=== PATIENT | female | born 1980 | race Caucasian/White ===

== ENCOUNTER 2025-04-04 13:57 | Outpatient (REF) | payer OTHER, SELFPAY ==
--- NOTE | 2025-04-04 14:05 | EMG_ITS ---
Chief complaint: Difficulty with making a fist noted 4 months ago. Without any pain or numbness. Fell down hurting right upper arm 2 months ago. 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 No atrophy. Right biceps appear to be more prominent compared to left side. Reason for referral: Evaluate for ulnar neuropathy, radiculopathy or carpal tunnel. Referred by: Yulisa VOSS Procedure done: Right upper extremity NCS/EMG Precautions and/or limitations: None The limb temperature was monitored continuously and remained between 32-36 degrees C during the performance of the NCS. Ulnar motor NCS was performed with moderate elbow flexion between 70-90 degrees, with across-elbow distance of 10 cm. Nerve Conduction Studies Anti Sensory Summary Table ?Stim Site NR Onset (ms) Norm Onset (ms) Peak (ms) Norm Peak (ms) O-P Amp (?V) Norm O-P Amp Site1 Site2 Delta-0 (ms) Dist (cm) Naif (m/s) Norm Naif (m/s) Right Lat Ante Brach Cutan Anti Sensory (Lat Forearm) Lat Biceps ? 0.8 1.0 11.1 Lat Biceps Lat Forearm 0.8 0.0 Right Med Ante Brach Cutan Anti Sensory (Med Forearm) Elbow ? 1.5 2.4 27.7 Elbow Med Forearm 1.5 0.0 Right Median Anti Sensory (2nd Digit) Wrist ? 2.3 2.9 <3.6 47.8 >10 Wrist 2nd Digit 2.3 14.0 61 Right Radial Anti Sensory (Thumb) Forearm ? 1.4 1.9 <3.1 15.2 Forearm Thumb 1.4 0.0 Right Ulnar Anti Sensory (5th Digit) Wrist ? 2.2 2.8 <3.7 46.7 >15.0 Wrist 5th Digit 2.2 14.0 64 Motor Summary Table ?Stim Site NR Onset (ms) Norm Onset (ms) O-P Amp (mV) Norm O-P Amp iAmp (mV) Amp (1st) (%) Site1 Site2 Delta-0 (ms) Dist (cm) Naif (m/s) Norm Naif (m/s) Right Median Motor (Abd Poll Brev) Wrist ? 2.8 <3.9 9.2 >4.5 11.0 100.0 Elbow Wrist 3.7 19.0 51 >45 Elbow ? 6.5 9.3 10.9 101.1 Right Ulnar Motor (Abd Dig Minimi) Wrist ? 2.7 <3.0 10.9 >5 12.3 100.0 B Elbow Wrist 2.9 17.0 59 >45 B Elbow ? 5.6 10.8 12.3 99.1 A Elbow B Elbow 1.3 10.0 77 >45 A Elbow ? 6.9 10.9 12.5 100.0 EMG ?Side Muscle Nerve Root Ins Act Fibs Psw Amp Dur Poly Recrt Int Pat Comment Right 1stDorInt Ulnar C8-T1 Nml Nml Nml Nml Nml 0 Nml Complete Right FlexCarRad Median C6-7 Nml Nml Nml Nml Nml 0 Nml Complete Right FlexCarpiUln Ulnar C8,T1 Nml Nml Nml Nml Nml 0 Nml Complete Right Biceps Musculocut C5-6 Nml Nml Nml Nml Nml 0 Nml Complete Right Triceps Radial C6-7-8 Nml Nml Nml Nml Nml 0 Nml Complete Right Deltoid Axillary C5-6 Nml Nml Nml Nml Nml 0 Nml Complete Right FlexDigProf Ulnar C8,T1 Incr 1+ 1+ Nml Nml 0 Nml Complete Paraspinal EMG ?Side Muscle Nerve Root Ins Act Fibs Psw Comment Right Cervical Upper Rami Nml Nml Nml Right Cervical Mid Rami Nml Nml Nml Right Cervical Lower Rami Nml Nml Nml FINDINGS: All motor and sensory nerves tested showed normal latencies, amplitudes and conduction velocities. Concentric needle EMG was performed in selected muscles of the right upper extremity and cervical paraspinals. Study revealed signs of electric abnormalities as shown in the table above. Right FDI showed increased insertional activity, PSWs and fibrillations. IMPRESSION: 1. This is an abnormal study. 2. There are electrodiagnostic findings suggestive for a beginning right ulnar neuropathy at the elbow. 3. There is no electrodiagnostic evidence for median neuropathy, brachial plexopathy, or cervical radiculopathy. CLINICAL COMMENT: 1. Findings above suggest acute ulnar neuropathy at the elbow, consistent with physical exam. Consider repeat NCS/EMG in 2-3 months.. 2. Please evaluate for right biceps tear, possibly unrelated to ulnar neuropathy, patient reported fall 2 months ago. Thank you for your kind referral. Lesly Taylor MD, ARMANDO Board Certified, [place] Board [employer] and Rehabilitation (ABPMR) Board Certified, [place] Board of Electrodiagnostic Medicine (ABEM) [place] [id number] [facility]
--- OUTSIDE RECORDS SUMMARY | 2025-04-04 14:47 | XMS_ITS | Encounter Summary ---
Author Organization [facility] Address [address] [place] [address] Care Team Providers Care Dampproofer Name Role Phone Genoveva Gibbons MD Primary Care Prov ider Reason for Referral * Consultation (Routine) - Pending Review Specialty Diagnoses / Procedures Referred By Gio viramontes Referred To Contact Dermatology Diagnoses Hair loss Genoveva Gibbons MD [address] [place] [address] Phone: tel: fax: [address] [address] Phone: tel: fax: Referral ID Status Reason Start Date Expiration Date Visits Requested Visits Authorized [id number] Pending Review Specialty Services Required 03/15/2025 03/15/2026 1 1 Reason for Visit * Reason Onset Date Comments Call back 03/13/2025 Encounter Details Date Type Department Care Team ([facility] st Contact Info) Description 03/13/2025 Telephone Orthopedic Surgery - [place] [address] [facility] [address] [place] [address] Antoni Welch PA [address] [address] Call back Social History Tobacco Use Types Packs/Day Years Used Date Smoking Tobacco: Never Smokeless Tobacco: Never Alcohol Use Standard Drinks/Week Comments Yes 0 (1 standard drink = 0.6 oz pur e alcohol) Housing Instability Answer Date Recorde d Are you worried that in the next 2 months you may not have stable housing? No 08/01/2024 Food Access & Nutrition Answer Date Rec orded Do you have access to a vari ety of food including fruits and vegetables? Yes 08/01/2024 Access to Healthcare Answer Date Record ed Within the last 3 months, ho w many times did you visit the emergency department for your medical care? 0 08/01/2024 Health Literacy Answer Date Recorded How often do you need to hav e someone help you when you read instructions, pamphlets, or other written material from your doctor or pharmacy? Never 08/01/2024 Caregiver: How often do you need to have someone help you when you read instructions, pamphlets, or other written material from your doctor or pharmacy? Not on file 08/01/2024 Financial Risk Answer Date Recorded How hard is it for you to pa y for the very basics like food, housing, medical care, and air conditioning / heating? Very hard 08/01/2024 Transportation Answer Date Recorded Has the lack of transportati on kept you from meetings, work, or from getting things needed for daily living? No Has the lack of transportati on kept you from medical appointments or from getting medications? No 08/01/2024 Social Isolation Answer Date Recorded How often do you feel lonely or isolated from those around you? Sometimes 08/01/2024 Food Risk Answer Date Recorded Within the past 12 months we worried whether our food would run out before we got money to buy more. Never true 08/01/2024 Within the past 12 months th e food we bought just didn't last and we didn't have money to get more. Never true 08/01/2024 Dependent Care Answer Date Recorded Do you need help finding or paying for care for your loved ones. For example, child care counselor or elderly care for an older adult? No 08/01/2024 Education Answer Date Recorded Do you think completing more education or training, like finishing a GED, going to college, or learning a trade, would be helpful for you? Yes 08/01/2024 Employment and Income Answer Date Recor ded During the last four weeks, have you been actively looking for work? Patient declined 08/01/2024 Living Situation Answer Date Recorded What is your living situation? 1 10/02/2023 Comments Unknown Sex and Gender Information Value Date Recorded Sex Assigned at Not on file Legal Sex Female 8:59 PM EST Gender Identity Not on file Sexual Orientation Not on file documented as of this encounter Progress Notes * Destiny Caceres MA - 03/20/2025 1:17 PM EDT L/M for patient to call office back to let her know Dr. Aguillon signed a dermatology referral. * Genoveva Gibbons MD - 03/15/2025 3:10 PM EDT Yes I think the neck step will be dermatology referral signed * Kavita Hernandez - 03/13/2025 2:36 PM EDT Patient states she received a call back from our office, not sure who called her , Nyasia sent a message to you, which was a My Chart message to Yulisa Lama from patient. By chance did you call her? Please jenaro her back @ [phone] . Thanks. documented in this encounter Plan of Treatment Upcoming Encounters Date Type Department Care Team (Late st Contact Info) Description 04/23/2025 1:15 PM EDT Office Visit Orthopedic Surgery - [place] [address] [facility] [address] [place] [id number] Sandra Logan MD 175 [facility] [address] [place] [id number] 08/09/2025 8:30 AM EST Office Visit Adult Medicine - Mobile [address] [place] [address] Genoveva Gibbons MD [address] [place] [address] Scheduled Referrals Name Type Priority Associated Diagnoses Order Schedule Ambulatory referral to Dermatology Outpatient Referral Routine Hair loss 1 Occurrences starting 03/15/2025 until 03/15/2026 documented as of this encounter Visit Diagnoses Diagnosis Hair loss- Primary Unspecified alopecia documented in this encounter Additional Health Concerns Assessment Noted Time PHQ-9 Depression Total Score: 1 01/26/20 25 7:24 PM EDT documented as of this encounter Care Teams Dampproofer Relationship Specialty Start Date End Date Genoveva Gibbons MD [address] [place] [address] PCP - General Internal Medicine 06/26/24 documented as of this encounter
--- OUTSIDE RECORDS SUMMARY | 2025-04-04 14:47 | XMS_ITS | Clinical Summary ---
Author Organization [facility], Address [address] [facility] [place] [address] Phone Care Team Providers Care Hand Mica Plate Layer Name Role Phone Jeffrey Champagne Primary Care Provider [phone] Allergies Active Allergy Reactions Criticality Noted Date Comments Promethazine Palpitations Low 10/19/2023 Medications amphetamine-dex troamphetamine (ADDERALL) 30 MG tablet Take 30 mg by mouth 1 (one) time each day Active Albuterol Sulfate 108 (90 Base) MCG/ACT aerosol powder Inhale Activ e Calcium-Magnesi um-Vitamin D 185-50-100 MG-MG-UNIT capsule Take by mouth Active ibuprofen (ADVIL,MOTRIN) 800 MG tablet Take 800 mg by mouth every 6 (six) hours if needed for mild pain Active lidocaine (LIDODERM) 5 % patch Apply 1 patch topically 1 (one) time each day Remove & discard patch within 12 hours or as directed by MD. Active spironolactone (ALDACTONE) 50 MG tablet Take 50 mg by mouth 1 (one) time each day Active valsartan (DIOVAN) 160 MG tablet Take 160 mg by mouth 1 (one) time each day Active zolpidem CR (AMBIEN CR) 12.5 MG CR tablet Take 12.5 mg by mouth at night if needed for sleep Do not crush, chew, or split. Active Active Problems Problem Noted Date Diagnosed Date Degeneration of lumbar intervertebral disc 10/18 Social History Tobacco Use Types Packs/Day Years Used Date Smoking Tobacco: Never Assessed Comments Unknown Sex and Gender Information Value Date Recorded Sex Assigned at Not on file Legal Sex Female 1:17 PM EST Gender Identity Not on file Sexual Orientation Not on file Last Filed Vital Signs Vital Sign Reading Time Taken Comments Blood Pressure 133/77 10/19/2023 10:07 AM EST Pulse - - Temperature 36.4 C (97.6 F) 10/19/2023 10:07 AM EST Respiratory Rate - - Oxygen Saturation 100% 10/19/2023 10:07 AM EST Inhaled Oxygen Concentration - - Weight 73.9 kg (163 lb) 10/19/2023 10:07 AM EST Height 160 cm (5' 3 ) 10/19/2023 10:07 AM EST Body Mass Index 28.87 10/19/2023 10:07 AM EST Plan of Treatment Health Maintenance Due Date Last Done Comments Hepatitis B Vaccine (1 of 3 - 19+ 3-dose series) 2001 Influenza Vaccine (#1) 2025 Pneumococcal Vaccine: Peds ( 0 to 5 Years) and At-Risk Patients (6 to 49 Years) Aged Out No longer eligible b ased on patient's age to complete this topic Insurance [address] [place] [address] [employer] Commercial Care Teams Hand Mica Plate Layer Relationship Specialty Start Date End Date Jeffrey Champagne DO PCP - General 10/18/23
--- OUTSIDE RECORDS SUMMARY | 2025-04-04 14:47 | XMS_ITS ---
Author Name [facility] Organization Unknown Care Team Organization Name Specialty Phone Email Start Date End Da te [facility] Herb Willis Primary Care 05/25/202303/22 [facility] Jeffrey Champagne DO Primary Care 02/24/202303/22 [facility] NULL Primary Care 06/29/2022 04/09/2024
--- OUTSIDE RECORDS SUMMARY | 2025-04-04 14:47 | XMS_ITS | Patient Health Record ---
Author Organization [facility] Address [address] [facility] [facility] [address] [place] [address] Care Team Providers Care Senior Search Marketing Analyst Name Role Phone YOSEF DIAZ Unavailable [phone] Reason For Referral No Information Plan Of Treatment No Information Insurance Providers Payer Name Payer Address Payer Phone Subscriber Number Group Number Insured Name Patient Relationship to Insured Coverage Start Date Coverage End Date [employer] [address] [address] [place] [address] VIVIANE RAYA Self - patient is the insured
== END 2025-04-04 13:58 | disposition home or self-care (01) ==
LOC: HO.NEURO 13:57
PROVIDERS: Visit Provider Physician Assistant
DX: M62.441 Contracture of muscle, right hand (principal); M54.2 Cervicalgia
CPT/HCPCS: 95886; 95910

== ENCOUNTER → 2025-04-04 14:05 | Outpatient (BNV) | payer OTHER, SELFPAY | PROVIDERS: Visit Provider Physical Medicine & Rehabilitation | DX: G56.21 Lesion of ulnar nerve, right upper limb (principal) | CPT/HCPCS: 95886; 95910 ==